=== PATIENT | female | born 1965 | race Caucasian/White ===

== ENCOUNTER 2020-12-14 12:59 | Inpatient (IN) | payer BC ==
[2020-12-14] MEDS ORDERED: Zofran 4 MG/2 ML VIAL IV ONE (13:19)
[2020-12-14] MEDS ORDERED: Sodium Chloride 0.9% 1000 ML 1,000 ML IV STA (13:19)
--- NOTE | 2020-12-14 13:25 | ERPHSYRPT ---
- History of Present Illness Time Seen by Provider: 12/14/20 13:23 Historian: patient Exam Limitations: no limitations Patient Subjective Stated Complaint: right lower abdominal pain Triage Nursing Assessment: Patient ambulated back to ED and transferred self to bed. Patient A+O x3. Patient's skin pink, warm and dry. Patient complains of lower right sided abdominal pain 8/10 dull aching pain with occasional sharp pain upon movement. Patient's abdomen soft and round with BS X 4. Rebound tenderness noted to RLQ. Patient states she did vomit X 1 yesterday. Physician History: Patient is 55-year-old female with significant past medical history of hyperlipidemia and hypertension started having a right lower quadrant abdominal pain since yesterday associated with vomiting. Patient denies any fever chills any urinary symptoms. Patient does not have any surgery in the past. Patient denies same type of symptoms in the past. Timing/Duration: yesterday Activities at Onset: none Quality: cramping Abdominal Pain Onset Location: RLQ Pain Radiation: no radiation Severity of Pain-Max: moderate Severity of Pain-Current: moderate Modifying Factors: Improves With: nothing Associated Symptoms: loss of appetite, nausea, vomiting Previous symptoms: no prior history Body Map: 1 - area of pain Allergies/Adverse Reactions: No Known Drug Allergies Allergy (Unverified 12/14/20 13:08) Hx Influenza Vaccination/Date Given: No Hx Pneumococcal Vaccination/Date Given: No Immunizations Up to Date: Yes Travel Risk - International Travel Have you traveled outside of the country in past 3 weeks: No - Coronavirus Screening Are you exhibiting any of the following symptoms?: No Close contact with a COVID-19 positive Pt in past 14-21 Days: No - Vaccine Status Have you recieved a Covid-19 vaccination: No - Review of Systems Constitutional: No Fever, No Chills Eyes: No Symptoms Ears, Nose, & Throat: No Symptoms Respiratory: No Cough, No Dyspnea Cardiac: No Chest Pain, No Edema, No Syncope Abdominal/Gastrointestinal: Abdominal Pain, Nausea, Vomiting, Appetite Changes, No Diarrhea, No Constipation, No Hematemesis, No Hematochezia, No Melena, No Dysphagia Genitourinary Symptoms: No Dysuria Musculoskeletal: No Back Pain, No Neck Pain Skin: No Rash Neurological: No Dizziness, No Focal Weakness, No Sensory Changes Psychological: No Symptoms Endocrine: No Symptoms All Other Systems: Reviewed and Negative - Past Medical History Neurological History: No Pertinent History Cardiac History: High Cholesterol, Hypertension Respiratory History: No Pertinent History Endocrine Medical History: No Pertinent History Musculoskeletal History: Arthritis, Fractures, Osteoarthritis GI Medical History: No Pertinent History History: No Pertinent History Female Reproductive Disorders: No Pertinent History Other Medical History: L tibial fx in 2007 with hardware removal later. wisam knee replacement 2018 - Past Surgical History Past Surgical History: Yes Neuro Surgical History: No Pertinent History Cardiac: No Pertinent History Respiratory: No Pertinent History Gastrointestinal: No Pertinent History Genitourinary: No Pertinent History Musculoskeletal: Orthopedic Surgery Female Surgical History: No Pertinent History - Social History Smoking Status: Never smoker Exposure to second hand smoke: No Drug Use: none Patient Lives Alone: Yes - Female History Hx Now: No - Nursing Vital Signs Nursing Vital Signs: Initial Vital Signs Temperature 98.3 F 12/14/20 13:11 Pulse Rate 92 H 12/14/20 13:11 Respiratory Rate 18 12/14/20 13:11 Blood Pressure 146/81 12/14/20 13:11 O2 Sat by Pulse Oximetry 96 12/14/20 13:11 Pain Scale Pain Intensity 6 - Physical Exam General Appearance: no apparent distress, alert Eye Exam: PERRL/EOMI, eyes nml inspection Ears, Nose, Throat Exam: normal ENT inspection, pharynx normal, moist mucous membranes Neck Exam: normal inspection, non-tender, supple, full range of motion Respiratory Exam: normal breath sounds, lungs clear, No respiratory distress Cardiovascular Exam: regular rate/rhythm, normal heart sounds Gastrointestinal/Abdomen Exam: soft, tenderness (right lower quadrant), No mass Back Exam: normal inspection, normal range of motion, No CVA tenderness, No vertebral tenderness Extremity Exam: normal inspection, normal range of motion, pelvis stable Neurologic Exam: alert, oriented x 3, cooperative, normal mood/affect, nml cerebellar function, sensation nml, No motor deficits Skin Exam: normal color, warm, dry SpO2: 96 - Course Nursing assessment & vital signs reviewed: Yes - CT Exams Abdomen/Pelvis CT Interpretation: Tele-radiologist Report (perforated appendicitis) Ordered Tests: Active Orders 24 hr Category Date Time Status ABDOMEN AND PELVIS W/0 CONTRAS [CT] Stat Exams 12/14/20 14:04 Taken OBSTR/ACUTE ABDOMEN SERIES Stat Exams 12/14/20 13:19 Taken AMYLASE Stat Lab 12/14/20 13:20 Completed CBC W DIFF Stat Lab 12/14/20 13:20 Completed CMP Stat Lab 12/14/20 13:20 Completed CULTURE,URINE Stat Lab 12/14/20 13:25 Received LIPASE Stat Lab 12/14/20 13:20 Completed UA W/RFX UR CULTURE Stat Lab 12/14/20 13:25 Completed Medication Summary Discontinued Medications Generic Name Dose Route Start Last Admin Trade Name Freq PRN Reason Stop Dose Admin Sodium Chloride 1,000 mls @ 999 mls/hr 12/14/20 13:19 12/14/20 15:36 Sodium Chloride 0.9% 1000 Ml IV 12/14/20 14:19 Infused .Q1H1M STA Infusion Sodium Chloride Confirm 12/14/20 13:33 Sodium Chloride 0.9% 1000 Ml Administered 12/14/20 13:34 Dose 1,000 mls @ ud .ROUTE .STK-MED ONE Cefazolin Sodium/Dextrose 1 gm in 50 mls @ 100 mls/hr 12/14/20 14:05 12/14/20 15:35 Kefzol 1 Gm/50 Ml Premix IV 12/14/20 14:34 Infused STAT STA Infusion Cefazolin Sodium/Dextrose Confirm 12/14/20 14:16 Kefzol 1 Gm/50 Ml Premix Administered 12/14/20 14:17 Dose 1 gm in 50 mls @ ud IV .STK-MED ONE Ondansetron HCl 4 mg 12/14/20 13:19 12/14/20 13:41 Zofran 4 Mg/2 Ml Vial IV 12/14/20 13:20 4 mg STAT ONE Administration Ondansetron HCl Confirm 12/14/20 13:33 Zofran 4 Mg/2 Ml Vial Administered 12/14/20 13:34 Dose 4 mg .ROUTE .STK-MED ONE Lab/Rad Data: Laboratory Result Diagrams 12/14/20 13:20 12/14/20 13:20 Laboratory Results 12/14/20 12/14/20 12/14/20 Range/Units 13:25 13:20 13:20 WBC 19.6 H (4.0-10.5) K/mm3 RBC 3.46 L (4.1-5.4) M/mm3 Hgb 8.5 L (12.0-16.0) gm/dl Hct 28.9 L (35-47) % MCV 83.5 (78-100) fl MCH 24.6 L (26-32) pg MCHC 29.4 L (32-36) g/dl RDW 17.6 H (11.5-14.0) % Plt Count 598 H (150-450) K/mm3 MPV 9.6 (7.5-11.0) fl Gran % 88.0 H (36.0-66.0) % Eos # (Auto) 0.01 (0-0.5) Absolute Lymphs (auto) 0.86 L (1.0-4.6) Absolute Monos (auto) 1.46 H (0.0-1.3) Lymphocytes % 4.4 L (24.0-44.0) % Monocytes % 7.5 (0.0-12.0) % Eosinophils % 0.1 (0.00-5.0) % Basophils % 0.0 (0.0-0.4) % Absolute Granulocytes 17.23 H (1.4-6.9) Basophils # 0 (0-0.4) Sodium 131 L (137-145) mmol/L Potassium 3.9 (3.5-5.1) mmol/L Chloride 97 L (98-107) mmol/L Carbon Dioxide 17 L (22-30) mmol/L Anion Gap 21.5 H (5-15) MEQ/L BUN 19 H (7-17) mg/dL Creatinine 0.93 (0.52-1.04) mg/dL Estimated GFR > 60.0 ML/MIN Glucose 215 H (74-106) mg/dL Calcium 10.0 (8.4-10.2) mg/dL Total Bilirubin 1.00 (0.2-1.3) mg/dL AST 21 (14-36) U/L ALT 25 (0-35) U/L Alkaline Phosphatase 109 (38-126) U/L Serum Total Protein 8.1 (6.3-8.2) g/dL Albumin 4.6 (3.5-5.0) g/dL Amylase 41 (30-110) U/L Lipase 36 (23-300) U/L Urine Color VIJAYA (YELLOW) Urine Appearance CLOUDY (CLEAR) Urine pH 5.0 (5-6) Ur Specific Mobile 1.030 (1.005-1.025) Urine Protein 100 (Negative) Urine Ketones TRACE (NEGATIVE) Urine Blood NEGATIVE (0-5) Eddie/ul Urine Nitrite NEGATIVE (NEGATIVE) Urine Bilirubin NEGATIVE (NEGATIVE) Urine Urobilinogen NEGATIVE (0-1) mg/dL Ur Leukocyte Esterase MODERATE (NEGATIVE) Urine WBC (Auto) 51-100 (0-5) /HPF Urine RBC (Auto) 6-10 (0-2) /HPF U Hyaline Cast (Auto) 26-50 (0-2) /LPF U Epithel Cells (Auto) RARE (FEW) /HPF Urine Bacteria (Auto) RARE (NEGATIVE) /HPF U Non-Squamous Epi Cells RARE (FEW) /HPF Urine Mucus (Auto) MANY (NEGATIVE) /HPF Urine Culture Reflexed YES (NO) Urine Glucose 50 (NEGATIVE) mg/dL - Progress Progress: unchanged Discussed with : Areli Will see patient in: hospital (observation) Counseled pt/family regarding: lab results, diagnosis, need for follow-up, rad results - Departure Departure Disposition: Observation Clinical Impression: Acute appendicitis Qualifiers: Acute appendicitis type: with localized peritonitis Appendicitis gangrene presence: without gangrene Appendicitis perforation presence: with perforation Appendicitis abscess presence: without abscess Qualified Code(s): K35.32 - Acute appendicitis with perforation and localized peritonitis, without abscess Condition: Fair Critical Care Time: Yes Critical Care Time(excluding separately billable procedures): Critical 30-74 mins Referrals: FELICIANO MARTÍNEZ NP [Primary Care Provider] - Instructions: Appendicitis, Adult (DC)
[2020-12-14] MEDS ORDERED: Zofran 4 MG/2 ML VIAL ONE ×2 (13:33→18:13)
[2020-12-14] MEDS ORDERED: Sodium Chloride 0.9% 1000 ML 1,000 ML ONE ×3 (13:33→18:47)
[2020-12-14 13:42] LABS: Absolute Neutrophil Ct (ANC) 17.23 (1.4-6.9); Basophil (Absolute #) 0 (0-0.4); Eosinophil % 0.1 % (0.00-5.0); Eosinophil (Absolute #) 0.01 (0-0.5); Hematocrit 28.9 % (35-47); Hemoglobin 8.5 gm/dl (12.0-16.0); Lymphocyte (Absolute #) 0.86 (1.0-4.6); Lymphocytes % 4.4 % (24.0-44.0); Mean Cell Volume 83.5 fl (78-100); Mean Corpuscular Hemoglobin 24.6 pg (26-32); Mean Corpuscular Hgb Concent. 29.4 g/dl (32-36); Mean Platelet Volume 9.6 fl (7.5-11.0); Monocyte (Absolute #) 1.46 (0.0-1.3); Monocytes % 7.5 % (0.0-12.0); Platelet Count 598 K/mm3 (150-450); Red Blood Count 3.46 M/mm3 (4.1-5.4); Red Cell Distribution Width 17.6 % (11.5-14.0); White Blood Count 19.6 K/mm3 (4.0-10.5)
[2020-12-14 13:49] LABS: ALBUMIN 4.6 g/dL (3.5-5.0); ALKALINE PHOSPHATASE 109 U/L (38-126); AMYLASE 41 U/L (30-110); ANION GAP 21.5 MEQ/L (5-15); BLOOD UREA NITROGEN 19 mg/dL (7-17); CHLORIDE 97 mmol/L (98-107); Carbon Dioxide 17 mmol/L (22-30); Creatinine 1 0.93 mg/dL (0.52-1.04); EST GLOMERULAR FILTRATION RATE > 60.0 ML/MIN; Glucose 215 mg/dL (74-106); LIPASE 36 U/L (23-300); Potassium 3.9 mmol/L (3.5-5.1); SGOT/AST 21 U/L (14-36); SODIUM 131 mmol/L (137-145); Total Protein 8.1 g/dL (6.3-8.2)
[2020-12-14 13:50] LABS: Appearance CLOUDY (CLEAR); Bacteria RARE /HPF (NEGATIVE); Bilirubin NEGATIVE (NEGATIVE); Blood NEGATIVE Ery/ul (0-5); Epithelial Cells RARE /HPF (FEW); Glucose 50 mg/dL (NEGATIVE); Hyaline Casts 26-50 /LPF (0-2); Ketones TRACE (NEGATIVE); Leukocyte Esterase MODERATE (NEGATIVE); Mucus MANY /HPF (NEGATIVE); Nitrite NEGATIVE (NEGATIVE); Non-Squamous Epithelial Cells RARE /HPF (FEW); Protein,Urine Dip 100 (Negative); Urobilinogen NEGATIVE mg/dL (0-1); WBC 51-100 /HPF (0-5)
[2020-12-14 13:55] LABS: SGPT/ALT 25 U/L (0-35)
[2020-12-14] MEDS ORDERED: KEFZOL 1 GM/50 ML PREMIX** 1 GM/50 ML IVPB IV STA (14:05)
[2020-12-14] MEDS ORDERED: KEFZOL 1 GM/50 ML PREMIX** 1 GM/50 ML IVPB IV ONE (14:16)
[2020-12-14] MEDS ORDERED: Levofloxacin 500MG/100ML D5W 500 MG/100 ML BAG IV SCH (16:30)
[2020-12-14] MEDS ORDERED: Lactated Ringers 1,000 ML IV ONE (16:32)
[2020-12-14] MEDS ORDERED: Levofloxacin 500MG/100ML D5W 500 MG/100 ML BAG IV ONE (16:35)
[2020-12-14] MEDS: Lactated Ringers 1,000 ML IV SCH (16:42)
[2020-12-14] MEDS ORDERED: Sensorcaine 0.25% 10 ML ONE (16:55)
[2020-12-14] MEDS ORDERED: Versed 2 MG/2 ML Injection ONE (16:56)
[2020-12-14] MEDS ORDERED: Zemuron 100 MG/10 ML ONE (16:59)
[2020-12-14] MEDS ORDERED: SUBLIMAZE 250 MCG/5 ML ONE (16:59)
[2020-12-14] MEDS ORDERED: DIPRIVAN 200 MG/20 ML IV ONE (16:59)
[2020-12-14] MEDS ORDERED: Quelicin Fliptop 200 MG/10 ML ONE (16:59)
[2020-12-14] MEDS ORDERED: BRIDION 200MG/2ML IV ONE (18:13)
[2020-12-14] MEDS ORDERED: TORAdol 30 mg Injection ONE (18:13)
[2020-12-14] MEDS ORDERED: SUBLIMAZE 100 MCG/2 ML ONE (18:27)
[2020-12-14] MEDS ORDERED: Decadron 4 MG INJ ONE (18:33)
[2020-12-14] MEDS ORDERED: TRANDATE 100 MG/20 ML MDV FOR DRIP IV ONE (18:44)
[2020-12-14] MEDS ORDERED: Xopenex 1.25 MG/0.5 ML UD NEBULE IH ONE ×2 (18:47→18:54)
[2020-12-14] MEDS ORDERED: Sodium Chloride 3 ML UD NEBULES IH ONE (18:47)
[2020-12-14] MEDS ORDERED: Sodium Chloride 3 ML UD NEBULES IH SCH (19:00)
--- NOTE | 2020-12-14 19:43 | XRAY ---
Indication: Right lower quadrant pain. Multiple contiguous axial images obtained through the abdomen and pelvis without contrast. Comparison: None Lung bases demonstrates moderate subsegmental atelectasis/scarring and tiny left costophrenic angle calcified granuloma. Heart is enlarged. Noncontrasted stomach and bowel loops appear nonobstructed. Distended appendix up to 1.4 cm with moderate periappendiceal stranding favoring acute appendicitis. Small free fluid but no walled off fluid collection or free air. Incidental scattered colonic diverticulosis. Gallbladder is moderately distended without gallstones or biliary distention. Uterus demonstrates a 4.9 cm exophytic partially calcified fundal fibroid. 3 cm right ovary cyst. Remaining liver, gallbladder, pancreas, spleen, adrenal glands, kidneys, ureters, bladder, and uterus are unremarkable for noncontrast exam. Mild scattered aortoiliac calcifications without AAA. Osseous structures intact. Impression: 1. CT findings favoring acute appendicitis with small free fluid. No walled off fluid collection/free air. 2. Distended gallbladder without gallstones. Sonogram may yield further information if clinically warranted. 3. Incidental bibasilar subsegmental atelectasis/scarring, cardiomegaly, colonic diverticulosis, uterine fibroid, and 3 cm right ovary cyst. Comment: Preliminary interpretation made by [facility]. No critical discrepancy.
--- NOTE | 2020-12-14 19:45 | XRAY ---
Indication: Right lower quadrant pain. Comparison: None 2 view abdomen demonstrates mild air distended small bowel loops with synchronous fluid leveling favoring ileus. No free air. Solid organs and osseous structures unremarkable. Single PA chest demonstrates moderate bibasilar subsegmental atelectasis/scarring and borderline cardiomegaly. Bony thorax intact. Impression: 1. Mild fluid distended small bowel loops with synchronous fluid leveling favoring ileus. 2. Bibasilar subsegmental atelectasis/scarring and cardiomegaly.
[2020-12-14] MEDS ORDERED: DEXTROSE 5% -NACL 0.9% 1000 ML + KCl 20 MEQ 0 ML IV ONE (19:54)
[2020-12-14] MEDS ORDERED: D5W/0.45NS W/ 20mEq KCl 1000 ML 1,000 ML IV ONE (19:56)
[2020-12-14] MEDS ORDERED: Zofran 4 MG/2 ML VIAL IV PRN (20:50)
[2020-12-14] MEDS ORDERED: TYLENOL 325 MG PO PRN (21:03)
[2020-12-14] MEDS ORDERED: HUMALOG SQ PRN (21:29)
[2020-12-14] MEDS: D5W/0.45NS W/ 20mEq KCl 1000 ML 1,000 ML IV SCH (22:18)
[2020-12-14] MEDS: Zocor 10MG PO SCH (22:19)
[2020-12-14] MEDS: FLAGYL 500 MG IVPB 500 MG/100 ML BAG IV SCH (22:19)
[2020-12-14] MEDS: MORPHINE SULFATE 4 MG INJ IV PRN (22:32)
[2020-12-14] MEDS ORDERED: Zosyn 3.375 GM Vial IV ONE (23:46)
[2020-12-14] MEDS ORDERED: Sodium Chloride 100ML MINI-BAG PLUS 100 ML IV ONE (23:47)
[2020-12-15] MEDS: Zosyn 3.375 GM Vial 3.375 GM in Sodium Chloride 100ML MINI-BAG PLUS 100 ML IV SCH ×4 (00:04→17:04)
[2020-12-15] MEDS ORDERED: MORPHINE SULFATE 4 MG INJ ONE ×2 (03:15→08:08)
[2020-12-15] MEDS: MORPHINE SULFATE 4 MG INJ IV PRN ×4 (03:18→23:15)
[2020-12-15] MEDS ORDERED: Sodium Chloride 100ML MINI-BAG PLUS 100 ML IV ONE (05:27)
[2020-12-15] MEDS ORDERED: FLAGYL 500 MG IVPB 500 MG/100 ML BAG IV ONE (05:27)
[2020-12-15] MEDS ORDERED: Zosyn 3.375 GM Vial IV ONE (05:27)
[2020-12-15] MEDS: FLAGYL 500 MG IVPB 500 MG/100 ML BAG IV SCH ×3 (06:17→22:03)
[2020-12-15 06:24] LABS: Hematocrit 23.7 % (35-47); Mean Cell Volume 86.8 fl (78-100); Mean Corpuscular Hemoglobin 24.5 pg (26-32); Mean Corpuscular Hgb Concent. 28.3 g/dl (32-36); Mean Platelet Volume 9.8 fl (7.5-11.0); Platelet Count 439 K/mm3 (150-450); Red Blood Count 2.73 M/mm3 (4.1-5.4); Red Cell Distribution Width 17.2 % (11.5-14.0); White Blood Count 10.2 K/mm3 (4.0-10.5)
[2020-12-15 06:40] LABS: Hemoglobin 6.7 gm/dl (12.0-16.0)
[2020-12-15 06:53] LABS: ALBUMIN 3.2 g/dL (3.5-5.0); ALKALINE PHOSPHATASE 76 U/L (38-126); BLOOD UREA NITROGEN 17 mg/dL (7-17); CHLORIDE 104 mmol/L (98-107); Calcium 8.7 mg/dL (8.4-10.2); Carbon Dioxide 23 mmol/L (22-30); EST GLOMERULAR FILTRATION RATE > 60.0 ML/MIN; Glucose 157 mg/dL (74-106); Potassium 4.1 mmol/L (3.5-5.1); SGOT/AST 15 U/L (14-36); SGPT/ALT 12 U/L (0-35); SODIUM 136 mmol/L (137-145)
[2020-12-15 08:27] LABS: Slide Review YES
[2020-12-15] MEDS ORDERED: Coreg 6.25 MG ONE (09:49)
[2020-12-15] MEDS ORDERED: Zocor 10MG ONE (09:49)
[2020-12-15] MEDS ORDERED: NORCO 5/325 MG ONE (09:52)
[2020-12-15] MEDS: NORCO 5/325 MG PO PRN ×2 (09:52→14:27)
[2020-12-15] MEDS: Zocor 10MG PO SCH (09:52)
[2020-12-15] MEDS: Lactated Ringers 1,000 ML IV SCH (09:52)
[2020-12-15] MEDS ORDERED: D5W/0.45NS W/ 20mEq KCl 1000 ML 1,000 ML IV ONE (09:56)
[2020-12-15] MEDS: D5W/0.45NS W/ 20mEq KCl 1000 ML 1,000 ML IV SCH (09:58)
[2020-12-15] MEDS ORDERED: PRAVASTATIN SODIUM PO SCH (10:00)
[2020-12-15] MEDS ORDERED: Coreg 6.25 MG PO SCH (10:00)
[2020-12-15 10:27] LABS: ABO TYPING A; Antibody Screen NEGATIVE (NEGATIVE); RH TYPING POSITIVE
[2020-12-15 10:29] LABS: CROSS MATCH (PRBC) COMPATIBLE (COMPATIBLE)
[2020-12-15] MEDS ORDERED: Sodium Chloride 0.9% 1000 ML 1,000 ML ONE (11:18)
[2020-12-15] MEDS ORDERED: BENADRYL 25 MG CAPSULE PO ONE (14:14)
[2020-12-15] MEDS ORDERED: PROVENTIL 2.5 MG/3 ML NEB IH ONE ×2 (14:30→16:10)
--- NOTE | 2020-12-15 15:08 | PCM.HP ---
History of Present Illness - Chief Complaint Chief Complaint: appendicitis History of Present Illness: is a 55 year old female, patient of Angel Burris NP who presented to ER with acute abdominal pain.CTabd/pelvis showed ruptured appendix.She was admitted for appendectomy. - Review of Systems Constitutional: No Symptoms Eyes: No Symptoms Ears, Nose, & Throat: No Symptoms Respiratory: No Symptoms Cardiac: No Symptoms Abdominal/Gastrointestinal: Abdominal Pain, Vomiting (x1) Genitourinary Symptoms: No Symptoms Musculoskeletal: No Symptoms Skin: No Symptoms Neurological: No Symptoms Psychological: No Symptoms Endocrine: No Symptoms Hematologic/Lymphatic: No Symptoms Immunological/Allergic: No Symptoms Medications & Allergies Home Medications: Home Medication List Carvedilol 6.25 mg [Coreg 6.25 MG] 1 tab PO BID 12/14/20 [History Confirmed 12/15/20] Pravastatin Sodium 1 tab PO DAILY 12/14/20 [History Confirmed 12/15/20] Ferrous Sulfate [Feosol] 325 mg PO DAILY #30 tablet 12/18/20 [Rx] Levofloxacin [Levofloxacin 500 MG Tablet] 500 mg PO QAM #6 tablet 12/18/20 [Rx] Allergies/Adverse Reactions: Allergies Allergy/AdvReac Type Severity Reaction Status Date / Time No Known Drug Allergies Allergy Unverified 12/14/20 13:08 - Past Medical History Neurological History: No Pertinent History Cardiac History: High Cholesterol, Hypertension Respiratory History: No Pertinent History Endocrine Medical History: No Pertinent History Musculoskelatal History: Arthritis, Fractures, Osteoarthritis GI Medical History: No Pertinent History History: No Pertinent History Reproductive Disorders: No Pertinent History Comment: R L Leg tibial fx in 2007 with hardware removal later. wisam knee replacement 2018 - Female History Are you now?: No - Past Surgical History Past Surgical History: Yes Neuro Surgical History: No Pertinent History Cardiac History: No Pertinent History Respiratory Surgery: No Pertinent History GI Surgical History: No Pertinent History Genitourinary Surgical Hx: No Pertinent History Musculskeletal Surgical Hx: Orthopedic Surgery Female Surgical History: No Pertinent History - Social History Smoking Status: Never smoker Exposure to second hand smoke: No Alcohol: Occasionally Drug Use: none - Physical Exam Vital Signs: Vital Signs - 24 hr Temp Pulse Resp BP Pulse Ox 12/15/20 11:52 97.5 F 73 18 97/56 97 12/15/20 08:00 98.9 F 81 18 136/63 93 L 12/15/20 07:30 94 L 12/15/20 04:00 98.9 F 83 23 131/63 94 L 12/14/20 23:35 97.9 F 67 20 107/55 95 12/14/20 22:35 98.9 F 87 28 H 110/56 94 L 12/14/20 21:35 98.0 F 87 18 129/69 93 L 12/14/20 21:00 98.6 F 86 28 H 127/60 92 L 12/14/20 20:30 98.7 F 85 32 H 112/58 92 L 12/14/20 20:11 99.0 F 86 32 H 108/59 92 L 12/14/20 20:00 98.8 F 89 32 H 111/67 92 L 12/14/20 19:45 90 L 12/14/20 19:42 99.0 F 86 32 H 108/59 92 L 12/14/20 19:01 85 30 H 99 12/14/20 17:01 98.7 F 97 H 18 151/85 89 L 12/14/20 16:39 98.7 F 97 H 18 151/85 89 L 12/14/20 16:21 96 12/14/20 15:49 89 18 133/60 98 General Appearance: mild distress (post op pain) Neurologic Exam: alert (lethargic from pain meds), oriented x 3, cooperative Eye Exam: eyes nml inspection Ears, Nose, Throat Exam: normal ENT inspection Neck Exam: normal inspection Respiratory Exam: diminished breath sounds (bases) Cardiovascular Exam: regular rate/rhythm Gastrointestinal/Abdomen Exam: distention, guarding (post op dressing is clean and dry, 2 drains present milky pink drainage present) Pelvic Exam: not done Rectal Exam: not done Back Exam: normal inspection (noCVA tenderness) Extremity Exam: normal inspection Skin Exam: normal color (spray lo), warm, dry Results - Labs Lab/Micro Results: Lab Results-Last 24 Hours 12/14/20 12/14/20 12/14/20 Range/Units 13:20 16:54 21:40 WBC (4.0-10.5) K/mm3 RBC (4.1-5.4) M/mm3 Hgb (12.0-16.0) gm/dl Hct (35-47) % MCV (78-100) fl MCH (26-32) pg MCHC (32-36) g/dl RDW (11.5-14.0) % Plt Count (150-450) K/mm3 MPV (7.5-11.0) fl Sodium (137-145) mmol/L Potassium (3.5-5.1) mmol/L Chloride (98-107) mmol/L Carbon Dioxide (22-30) mmol/L Anion Gap (5-15) MEQ/L BUN (7-17) mg/dL Creatinine (0.52-1.04) mg/dL Estimated GFR ML/MIN Glucose (74-106) mg/dL POC Glucometer 130 H (74 to 106) mg/dL Hemoglobin A1c 6.11 H (4.5-6.0) % Calcium (8.4-10.2) mg/dL Total Bilirubin (0.2-1.3) mg/dL AST (14-36) U/L ALT (0-35) U/L Alkaline Phosphatase (38-126) U/L Serum Total Protein (6.3-8.2) g/dL Albumin (3.5-5.0) g/dL SARS-CoV-2 (PCR) NEGATIVE (NEGATIVE) Slides for Path Review ABO Group Rh Factor Antibody Screen (NEGATIVE) Crossmatch (COMPATIBLE) 12/15/20 12/15/20 12/15/20 Range/Units 05:15 05:15 07:44 WBC 10.2 (4.0-10.5) K/mm3 RBC 2.73 L (4.1-5.4) M/mm3 Hgb 6.7 L* D (12.0-16.0) gm/dl Hct 23.7 L (35-47) % MCV 86.8 (78-100) fl MCH 24.5 L (26-32) pg MCHC 28.3 L (32-36) g/dl RDW 17.2 H (11.5-14.0) % Plt Count 439 (150-450) K/mm3 MPV 9.8 (7.5-11.0) fl Sodium 136 L (137-145) mmol/L Potassium 4.1 (3.5-5.1) mmol/L Chloride 104 (98-107) mmol/L Carbon Dioxide 23 (22-30) mmol/L Anion Gap 13.0 (5-15) MEQ/L BUN 17 (7-17) mg/dL Creatinine 0.80 (0.52-1.04) mg/dL Estimated GFR > 60.0 ML/MIN Glucose 157 H (74-106) mg/dL POC Glucometer 144 H (74 to 106) mg/dL Hemoglobin A1c (4.5-6.0) % Calcium 8.7 (8.4-10.2) mg/dL Total Bilirubin 0.50 (0.2-1.3) mg/dL AST 15 (14-36) U/L ALT 12 (0-35) U/L Alkaline Phosphatase 76 (38-126) U/L Serum Total Protein 6.0 L (6.3-8.2) g/dL Albumin 3.2 L (3.5-5.0) g/dL SARS-CoV-2 (PCR) (NEGATIVE) Slides for Path Review YES ABO Group Rh Factor Antibody Screen (NEGATIVE) Crossmatch (COMPATIBLE) 12/15/20 12/15/20 12/15/20 Range/Units 08:10 08:10 11:23 WBC (4.0-10.5) K/mm3 RBC (4.1-5.4) M/mm3 Hgb (12.0-16.0) gm/dl Hct (35-47) % MCV (78-100) fl MCH (26-32) pg MCHC (32-36) g/dl RDW (11.5-14.0) % Plt Count (150-450) K/mm3 MPV (7.5-11.0) fl Sodium (137-145) mmol/L Potassium (3.5-5.1) mmol/L Chloride (98-107) mmol/L Carbon Dioxide (22-30) mmol/L Anion Gap (5-15) MEQ/L BUN (7-17) mg/dL Creatinine (0.52-1.04) mg/dL Estimated GFR ML/MIN Glucose (74-106) mg/dL POC Glucometer 147 H (74 to 106) mg/dL Hemoglobin A1c (4.5-6.0) % Calcium (8.4-10.2) mg/dL Total Bilirubin (0.2-1.3) mg/dL AST (14-36) U/L ALT (0-35) U/L Alkaline Phosphatase (38-126) U/L Serum Total Protein (6.3-8.2) g/dL Albumin (3.5-5.0) g/dL SARS-CoV-2 (PCR) (NEGATIVE) Slides for Path Review ABO Group A Rh Factor POSITIVE Antibody Screen NEGATIVE (NEGATIVE) Crossmatch COMPATIBLE COMPATIBLE (COMPATIBLE) Microbiology 12/14/20 18:07 Urine Culture - Preliminary Catherized NO GROWTH TO DATE 12/14/20 13:25 Urine Culture - Preliminary Clean Catch Midstream NO GROWTH TO DATE Accuchecks Date 12/15/20 Date 12/15/20 Time 07:30 - Radiology Impressions Radiology Exams & Impressions: Radiology Procedures Category Date Time Status ABDOMEN AND PELVIS W/0 CONTRAS [CT] Stat Exams 12/14/20 14:04 Completed OBSTR/ACUTE ABDOMEN SERIES Stat Exams 12/14/20 13:19 Completed - Other Procedures and Tests Respiratory Therapy 12/14/20 19:00 Incentive Spirometry TID 12/14/20 19:01 Respiratory Therapy Assessment DAILY 12/14/20 20:05 Oxygen Oxymask LPM 6 lpm Assessment/Plan (1) Acute appendicitis Current Visit: Yes Status: Resolved Qualifiers: Acute appendicitis type: with localized peritonitis Appendicitis gangrene presence: without gangrene Appendicitis perforation presence: with perforation Appendicitis abscess presence: without abscess Qualified Code(s): K35.32 - Acute appendicitis with perforation and localized peritonitis, without abscess Assessment & Plan: post op Code(s): K35.80 - UNSPECIFIED ACUTE APPENDICITIS (2) Anemia Current Visit: Yes Status: Acute Qualifiers: Anemia type: unspecified type Qualified Code(s): D64.9 - Anemia, unspecified Assessment & Plan: Hgb =6.7 and patient agreed to transfusion 2units PRBC Code(s): D64.9 - ANEMIA, UNSPECIFIED
[2020-12-15 18:11] LABS: Hematocrit 29.1 % (35-47); Hemoglobin 8.5 gm/dl (12.0-16.0)
[2020-12-15] MEDS: ZOCOR 20MG PO SCH (22:04)
[2020-12-15] MEDS: Coreg 6.25 MG PO SCH (22:04)
[2020-12-15] MEDS ORDERED: PROVENTIL 2.5 MG/3 ML NEB IH PRN (22:35)
[2020-12-15 23:01] LABS: Absolute Neutrophil Ct (ANC) 8.28 (1.4-6.9); BASOPHIL % 0.1 % (0.0-0.4); Basophil (Absolute #) 0.01 (0-0.4); Eosinophil % 1.2 % (0.00-5.0); Eosinophil (Absolute #) 0.12 (0-0.5); Hematocrit 27.8 % (35-47); Hemoglobin 8.2 gm/dl (12.0-16.0); Lymphocyte (Absolute #) 0.67 (1.0-4.6); Lymphocytes % 6.6 % (24.0-44.0); Mean Cell Volume 86.9 fl (78-100); Mean Corpuscular Hemoglobin 25.6 pg (26-32); Mean Corpuscular Hgb Concent. 29.5 g/dl (32-36); Monocyte (Absolute #) 1.11 (0.0-1.3); Monocytes % 10.9 % (0.0-12.0); Neutrophil % 81.2 % (36.0-66.0); Platelet Count 299 K/mm3 (150-450); Red Cell Distribution Width 16.6 % (11.5-14.0); White Blood Count 10.2 K/mm3 (4.0-10.5)
[2020-12-15 23:13] LABS: ALBUMIN 3.1 g/dL (3.5-5.0); ALKALINE PHOSPHATASE 91 U/L (38-126); BLOOD UREA NITROGEN 15 mg/dL (7-17); CHLORIDE 103 mmol/L (98-107); Calcium 8.3 mg/dL (8.4-10.2); Carbon Dioxide 19 mmol/L (22-30); Creatinine 1 0.58 mg/dL (0.52-1.04); EST GLOMERULAR FILTRATION RATE > 60.0 ML/MIN; Glucose 136 mg/dL (74-106); Potassium 4.1 mmol/L (3.5-5.1); SGOT/AST 18 U/L (14-36); SGPT/ALT 9 U/L (0-35); SODIUM 130 mmol/L (137-145); Total Protein 6.1 g/dL (6.3-8.2)
[2020-12-16] MEDS: Zosyn 3.375 GM Vial 3.375 GM in Sodium Chloride 100ML MINI-BAG PLUS 100 ML IV SCH ×5 (00:54→23:09)
[2020-12-16] MEDS: MORPHINE SULFATE 4 MG INJ IV PRN ×2 (03:34→11:42)
[2020-12-16] MEDS: D5W/0.45NS W/ 20mEq KCl 1000 ML 1,000 ML IV SCH (03:36)
[2020-12-16 05:25] LABS: Hematocrit 28.7 % (35-47); Hemoglobin 8.4 gm/dl (12.0-16.0); Mean Cell Volume 86.2 fl (78-100); Mean Corpuscular Hemoglobin 25.2 pg (26-32); Mean Corpuscular Hgb Concent. 29.3 g/dl (32-36); Mean Platelet Volume 9.5 fl (7.5-11.0); Platelet Count 456 K/mm3 (150-450); Red Blood Count 3.33 M/mm3 (4.1-5.4); Red Cell Distribution Width 16.6 % (11.5-14.0); White Blood Count 10.2 K/mm3 (4.0-10.5)
[2020-12-16 05:40] LABS: ALBUMIN 3.3 g/dL (3.5-5.0); ALKALINE PHOSPHATASE 95 U/L (38-126); ANION GAP 14.2 MEQ/L (5-15); BLOOD UREA NITROGEN 11 mg/dL (7-17); CHLORIDE 102 mmol/L (98-107); Calcium 8.7 mg/dL (8.4-10.2); Carbon Dioxide 20 mmol/L (22-30); Creatinine 1 0.62 mg/dL (0.52-1.04); EST GLOMERULAR FILTRATION RATE > 60.0 ML/MIN; Glucose 160 mg/dL (74-106); Potassium 4.1 mmol/L (3.5-5.1); SGOT/AST 16 U/L (14-36); SGPT/ALT 12 U/L (0-35); SODIUM 133 mmol/L (137-145); Total Protein 6.4 g/dL (6.3-8.2)
[2020-12-16] MEDS: FLAGYL 500 MG IVPB 500 MG/100 ML BAG IV SCH ×3 (05:58→21:46)
--- NOTE | 2020-12-16 08:58 | CONS ---
CONSULT DATE: 12/14/2020 HISTORY: The patient is a 55 year-old with two-day history of abdominal pain localized to the right lower quadrant. Failed to improve and came in. She had a white count of 19,000 or greater. She had CT scan show inflammatory changes consistent with acute appendicitis, possible perforation, and possible abscess. PAST MEDICAL HISTORY: Hypertension, hyperlipidemia. PAST SURGICAL HISTORY: The patient denied any prior abdominal surgery. HOME MEDICATIONS: Carvedilol, pravastatin. ALLERGIES: NKDA. FAMILY HISTORY: Heart disease, diabetes. SOCIAL HISTORY: Denied smoking. Does drink alcohol on occasion. REVIEW OF SYSTEMS: Fourteen systems reviewed. No chest pain or palpitations. Other systems negative or noncontributory as above and per preadmission questionnaire. PHYSICAL EXAMINATION: GENERAL: She has been uncomfortable otherwise no acute distress. HEENT: Sclera nonicteric. NECK: No JVD. CHEST: Equal excursion. CVS: Regular rhythm and pulse. ABDOMEN: Tenderness mostly localized to the right lower quadrant. EXTREMITIES: No cyanosis. NEURO: Alert, moving extremities symmetrically. PSYCH: Appropriate mood and affect. IMPRESSION: Acute abdominal pain localized to right lower quadrant. Initial CT findings suspicious for acute appendicitis. I feel the patient will benefit from diagnostic laparoscopy, laparoscopic appendectomy possible open. Risks and benefits explained in detail including but not limited to bleeding or infection, risk of trocar injury or hernia, risk of bowel, bladder or blood vessel injury, subsequent intra-abdominal abscess or fistula formation possibly requiring percutaneous or open drainage even at a later date, general risk of anesthesia, deep venous thrombosis, pulmonary embolism, pneumonia, perioperative risk of risk of ileus or obstruction, risk of ongoing infection, possibility of finding a normal appendix likely will remove incidentally and look for other etiology that might need taken care of surgically. General risk of anesthesia, deep vein thrombosis, pulmonary embolism, pneumonia but not limited to. She agreed to the planned procedure, will proceed with diagnostic laparoscopy, laparoscopic appendectomy, possible open when OR time available.
--- NOTE | 2020-12-16 08:59 | XRAY ---
Indication: Hypoxia. Elevated d-dimer. Status post appendectomy. Multiple contiguous axial images obtained through the chest using 80 cc Isovue 370 contrast and PE protocol. Comparison: None Good opacification of the pulmonary arteries to include the lobar and segmental branches. No pulmonary embolus. Heart is enlarged. Aorta is normal in course and caliber. A few tiny right hilar calcified nodes. No pathologic mediastinal/hilar lymphadenopathy. Lungs demonstrates moderate multifocal consolidations versus subsegmental atelectasis right greater than left with tiny bilateral effusions. Incidental tiny right lower lobe calcified granuloma. Bony thorax intact. Right T3 neural foramina demonstrates a 2.4 x 2.6 cm paravertebral mass possibly schwannoma or neurofibroma. Limited upper abdomen demonstrates incompletely visualized distended gallbladder and incompletely visualized left lateral abdominal wall subcutaneous emphysema. Impression: 1. Negative pulmonary embolus. 2. Multifocal bilateral consolidations versus subsegmental atelectasis with tiny bilateral effusions. 3. Incompletely visualized distended gallbladder. Sonogram may yield further information if clinically warranted. 4. Right T3 neural foramina mass. Schwannoma versus neurofibroma. MRI may yield further information if clinically warranted. 5. Incompletely visualized left abdominal wall subcutaneous emphysema. Correlate with surgical history. 6. Incidental old granulomatous disease. Comment: Preliminary interpretation made by [facility]. No critical discrepancy.
--- NOTE | 2020-12-16 09:01 | XRAY ---
Indication: Hypoxia. Elevated d-dimer. Status post appendectomy. Comparison: December 14, 2020. Portable chest demonstrates worsening moderate bibasilar atelectasis versus infiltrates with new tiny left effusion. Heart remains borderline enlarged. Remaining chest unremarkable. Comment: Preliminary interpretation made by [facility]. No critical discrepancy.
--- NOTE | 2020-12-16 09:03 | XRAY ---
Indication: Hypoxia. Elevated d-dimer. Status post appendectomy. Comparison: December 14, 2020. KUB demonstrates new right lower quadrant drainage tubing and left flank subcutaneous emphysema presumed related to recent surgery. New air distended bowel loops favoring postoperative ileus. Solid organs unremarkable. Osseous structures intact again with old right lower rib fractures. Comment: Preliminary interpretation made by [facility]. No critical discrepancy.
--- NOTE | 2020-12-16 09:24 | OP ---
SURGERY DATE/TIME: 12/14/2020 1725 PREOPERATIVE DIAGNOSIS: Acute appendicitis by CT scan, question perforation. POSTOPERATIVE DIAGNOSIS: Perforated acute appendicitis with diffuse peritonitis and abscesses. PROCEDURE: Laparoscopic appendectomy with drainage of abscesses, extensive lavage of peritonitis. SURGEON: Dr. Vahid Quach. ANESTHESIA: General. ESTIMATED BLOOD LOSS: Minimal. INDICATIONS: As noted above. Risks and benefits explained in detail but not limited to, consent obtained. DESCRIPTION OF PROCEDURE AND FINDINGS: The patient was taken to the operating room. General anesthesia was induced. Abdomen prepped and draped in the usual sterile fashion. After official time out and no disagreement with planned procedure, a transverse incision made in supraumbilical area. Fascia grasped and pulled upwards. Veress needle inserted and tested with saline. Pneumoperitoneum accomplished insufflating from opening pressure of 0 to 15. A 5 mm bladeless port and camera were inserted without difficulty followed by another 5 mm port in the lower mid abdomen and a 12 mm right upper quadrant port. The patient had small bowel loops adhesed to the anterior abdominal wall in the right lower quadrant, had diffuse peritonitis and had some interloop abscesses. These were slowly and carefully mobilized allowing visualization of appendix. It was definitely perforated and had a gangrenous base. The abscesses there were drained and irrigated as clear as possible with some of the fluid sent for culture. Using LigaSure device carefully dissected the mesoappendix allowing the viable portion of the appendiceal base elevated upwards and EndoGIA stapler fired across the base of the cecum avoiding the ileocecal valve area. The residual mesoappendix taken down with the stapler. Appendix placed in a bag, pulled free and passed off. The port was replaced. Using the puncture closure device with #1 Vicryl used to close the fascial defect at the 12 mm site. The port was replaced. Copious amount of irrigation was irrigated. Both down in the pelvis in the right lower quadrant diffuse peritonitis and the abscesses drained. The patient did have a large what appeared to be simple left ovarian cyst. Extensive lavage of the pelvis and interloop abscesses and the right lower quadrant abscesses accomplished as clear as possible. JANEL drain lower mid abdomen 5 mm port placed in the right lower quadrant without direct communication with the staple line and another drain from a separate stab wound in right lower quadrant was directed down towards the pelvis. Copious amount of irrigation irrigating until clear. At this point again #1 Vicryl used to close the fascial defect 12 mm site. Pneumoperitoneum decompressed. The wound is irrigated out. Drains secured with PDS suture. The skin incision at the camera port was closed with 4-0 Vicryl. Otherwise the other incisions 12 mm site where the appendix had been as there was so much foul infection even on the outside of the bag even though we kept the appendix in the bag, it was felt this warranted a packing strip to gradually advance out over the next few days. Therefore, the skin at that port site was loosely stapled with Iodoform packing placed in between to be gradually advanced out over the next few days. The patient tolerated the procedure well. There were no immediate complications. I will see if there is any family to discuss the findings with.
[2020-12-16] MEDS: Coreg 6.25 MG PO SCH ×2 (09:52→21:47)
[2020-12-16] MEDS ORDERED: K-LYTE 25 MEQ PO ONE (10:00)
[2020-12-16] MEDS ORDERED: Lasix 20 MG/2 ML IV ONE (11:30)
--- NOTE | 2020-12-16 13:10 | PCM.NOTE ---
Date and Time: 12/16/20 1303 Subjective Assessment: Patient POD#2 appendectomy ruptured appedix. Hgb dropped to 6.7 yesterday and she received 2units PRBC . During the night she had worsening of right sided pain and desaturated requiring O2 12L oximask. D-Dimer elevated CT chest was neg for PE showing bibasilar effusion vs infiltrate. BNP mildly elevated. Patient has improved with diuresis after single dose Lasix 20mg IV. She has tolerated advanced diet . ECHO was done this morning. OBJECTIVE DATA Vital Signs: Vital Signs - 24 hr Temp Pulse Resp BP Pulse Ox 12/16/20 08:00 97.7 F 70 16 112/59 95 12/16/20 07:16 76 26 H 95 12/16/20 04:08 97.3 F 78 24 140/62 92 L 12/15/20 22:57 93 L 12/15/20 22:52 87 32 H 93 L 12/15/20 20:14 26 H 92 L 12/15/20 20:00 98.7 F 82 22 160/83 95 12/15/20 16:00 97.9 F 76 20 122/60 97 12/15/20 15:00 80 32 H 90 L Pain Assessment - Last Documented Pain Intensity 5 Pain Scale Used 0-10 Pain Scale Intake and Output: Intake & Output 12/14/20 12/15/20 12/16/20 12/17/20 11:59 11:59 11:59 11:59 Intake Total 1641 3555 Output Total 880 560 Balance 761 2995 Weight 88.451 kg Lab Results: Lab Results-Last 24 Hours 12/15/20 12/15/20 12/15/20 Range/Units 16:49 18:08 20:43 WBC (4.0-10.5) K/mm3 RBC (4.1-5.4) M/mm3 Hgb 8.5 L D (12.0-16.0) gm/dl Hct 29.1 L (35-47) % MCV (78-100) fl MCH (26-32) pg MCHC (32-36) g/dl RDW (11.5-14.0) % Plt Count (150-450) K/mm3 MPV (7.5-11.0) fl Gran % (36.0-66.0) % Eos # (Auto) (0-0.5) Absolute Lymphs (auto) (1.0-4.6) Absolute Monos (auto) (0.0-1.3) Lymphocytes % (24.0-44.0) % Monocytes % (0.0-12.0) % Eosinophils % (0.00-5.0) % Basophils % (0.0-0.4) % Absolute Granulocytes (1.4-6.9) Basophils # (0-0.4) D-Dimer (215-500) ng/mL Sodium (137-145) mmol/L Potassium (3.5-5.1) mmol/L Chloride (98-107) mmol/L Carbon Dioxide (22-30) mmol/L Anion Gap (5-15) MEQ/L BUN (7-17) mg/dL Creatinine (0.52-1.04) mg/dL Estimated GFR ML/MIN Glucose (74-106) mg/dL POC Glucometer 115 H 133 H (74 to 106) mg/dL Lactic Acid (0.4-2.0) Calcium (8.4-10.2) mg/dL Total Bilirubin (0.2-1.3) mg/dL AST (14-36) U/L ALT (0-35) U/L Alkaline Phosphatase (38-126) U/L NT-Pro-B Natriuret Pep (0-900) pg/mL Serum Total Protein (6.3-8.2) g/dL Albumin (3.5-5.0) g/dL SARS-CoV-2 (PCR) (NEGATIVE) 12/15/20 12/15/20 12/15/20 Range/Units 22:54 22:55 22:56 WBC 10.2 (4.0-10.5) K/mm3 RBC 3.20 L (4.1-5.4) M/mm3 Hgb 8.2 L (12.0-16.0) gm/dl Hct 27.8 L (35-47) % MCV 86.9 (78-100) fl MCH 25.6 L (26-32) pg MCHC 29.5 L (32-36) g/dl RDW 16.6 H (11.5-14.0) % Plt Count 299 (150-450) K/mm3 MPV 10.0 (7.5-11.0) fl Gran % 81.2 H (36.0-66.0) % Eos # (Auto) 0.12 (0-0.5) Absolute Lymphs (auto) 0.67 L (1.0-4.6) Absolute Monos (auto) 1.11 (0.0-1.3) Lymphocytes % 6.6 L (24.0-44.0) % Monocytes % 10.9 (0.0-12.0) % Eosinophils % 1.2 (0.00-5.0) % Basophils % 0.1 (0.0-0.4) % Absolute Granulocytes 8.28 H (1.4-6.9) Basophils # 0.01 (0-0.4) D-Dimer 4433 H* (215-500) ng/mL Sodium (137-145) mmol/L Potassium (3.5-5.1) mmol/L Chloride (98-107) mmol/L Carbon Dioxide (22-30) mmol/L Anion Gap (5-15) MEQ/L BUN (7-17) mg/dL Creatinine (0.52-1.04) mg/dL Estimated GFR ML/MIN Glucose (74-106) mg/dL POC Glucometer (74 to 106) mg/dL Lactic Acid (0.4-2.0) Calcium (8.4-10.2) mg/dL Total Bilirubin (0.2-1.3) mg/dL AST (14-36) U/L ALT (0-35) U/L Alkaline Phosphatase (38-126) U/L NT-Pro-B Natriuret Pep 925 H (0-900) pg/mL Serum Total Protein (6.3-8.2) g/dL Albumin (3.5-5.0) g/dL SARS-CoV-2 (PCR) (NEGATIVE) 12/15/20 12/15/20 12/16/20 Range/Units 22:56 23:15 01:39 WBC (4.0-10.5) K/mm3 RBC (4.1-5.4) M/mm3 Hgb (12.0-16.0) gm/dl Hct (35-47) % MCV (78-100) fl MCH (26-32) pg MCHC (32-36) g/dl RDW (11.5-14.0) % Plt Count (150-450) K/mm3 MPV (7.5-11.0) fl Gran % (36.0-66.0) % Eos # (Auto) (0-0.5) Absolute Lymphs (auto) (1.0-4.6) Absolute Monos (auto) (0.0-1.3) Lymphocytes % (24.0-44.0) % Monocytes % (0.0-12.0) % Eosinophils % (0.00-5.0) % Basophils % (0.0-0.4) % Absolute Granulocytes (1.4-6.9) Basophils # (0-0.4) D-Dimer (215-500) ng/mL Sodium 130 L (137-145) mmol/L Potassium 4.1 (3.5-5.1) mmol/L Chloride 103 (98-107) mmol/L Carbon Dioxide 19 L (22-30) mmol/L Anion Gap 13.0 (5-15) MEQ/L BUN 15 (7-17) mg/dL Creatinine 0.58 (0.52-1.04) mg/dL Estimated GFR > 60.0 ML/MIN Glucose 136 H (74-106) mg/dL POC Glucometer (74 to 106) mg/dL Lactic Acid 0.7 (0.4-2.0) Calcium 8.3 L (8.4-10.2) mg/dL Total Bilirubin 0.90 (0.2-1.3) mg/dL AST 18 (14-36) U/L ALT 9 (0-35) U/L Alkaline Phosphatase 91 (38-126) U/L NT-Pro-B Natriuret Pep (0-900) pg/mL Serum Total Protein 6.1 L (6.3-8.2) g/dL Albumin 3.1 L (3.5-5.0) g/dL SARS-CoV-2 (PCR) NEGATIVE (NEGATIVE) 12/16/20 12/16/20 12/16/20 Range/Units 05:00 05:00 07:16 WBC 10.2 (4.0-10.5) K/mm3 RBC 3.33 L (4.1-5.4) M/mm3 Hgb 8.4 L (12.0-16.0) gm/dl Hct 28.7 L (35-47) % MCV 86.2 (78-100) fl MCH 25.2 L (26-32) pg MCHC 29.3 L (32-36) g/dl RDW 16.6 H (11.5-14.0) % Plt Count 456 H D (150-450) K/mm3 MPV 9.5 (7.5-11.0) fl Gran % (36.0-66.0) % Eos # (Auto) (0-0.5) Absolute Lymphs (auto) (1.0-4.6) Absolute Monos (auto) (0.0-1.3) Lymphocytes % (24.0-44.0) % Monocytes % (0.0-12.0) % Eosinophils % (0.00-5.0) % Basophils % (0.0-0.4) % Absolute Granulocytes (1.4-6.9) Basophils # (0-0.4) D-Dimer (215-500) ng/mL Sodium 133 L (137-145) mmol/L Potassium 4.1 (3.5-5.1) mmol/L Chloride 102 (98-107) mmol/L Carbon Dioxide 20 L (22-30) mmol/L Anion Gap 14.2 (5-15) MEQ/L BUN 11 (7-17) mg/dL Creatinine 0.62 (0.52-1.04) mg/dL Estimated GFR > 60.0 ML/MIN Glucose 160 H (74-106) mg/dL POC Glucometer 203 H (74 to 106) mg/dL Lactic Acid (0.4-2.0) Calcium 8.7 (8.4-10.2) mg/dL Total Bilirubin 0.80 (0.2-1.3) mg/dL AST 16 (14-36) U/L ALT 12 (0-35) U/L Alkaline Phosphatase 95 (38-126) U/L NT-Pro-B Natriuret Pep (0-900) pg/mL Serum Total Protein 6.4 (6.3-8.2) g/dL Albumin 3.3 L (3.5-5.0) g/dL SARS-CoV-2 (PCR) (NEGATIVE) 12/16/20 Range/Units 11:39 WBC (4.0-10.5) K/mm3 RBC (4.1-5.4) M/mm3 Hgb (12.0-16.0) gm/dl Hct (35-47) % MCV (78-100) fl MCH (26-32) pg MCHC (32-36) g/dl RDW (11.5-14.0) % Plt Count (150-450) K/mm3 MPV (7.5-11.0) fl Gran % (36.0-66.0) % Eos # (Auto) (0-0.5) Absolute Lymphs (auto) (1.0-4.6) Absolute Monos (auto) (0.0-1.3) Lymphocytes % (24.0-44.0) % Monocytes % (0.0-12.0) % Eosinophils % (0.00-5.0) % Basophils % (0.0-0.4) % Absolute Granulocytes (1.4-6.9) Basophils # (0-0.4) D-Dimer (215-500) ng/mL Sodium (137-145) mmol/L Potassium (3.5-5.1) mmol/L Chloride (98-107) mmol/L Carbon Dioxide (22-30) mmol/L Anion Gap (5-15) MEQ/L BUN (7-17) mg/dL Creatinine (0.52-1.04) mg/dL Estimated GFR ML/MIN Glucose (74-106) mg/dL POC Glucometer 141 H (74 to 106) mg/dL Lactic Acid (0.4-2.0) Calcium (8.4-10.2) mg/dL Total Bilirubin (0.2-1.3) mg/dL AST (14-36) U/L ALT (0-35) U/L Alkaline Phosphatase (38-126) U/L NT-Pro-B Natriuret Pep (0-900) pg/mL Serum Total Protein (6.3-8.2) g/dL Albumin (3.5-5.0) g/dL SARS-CoV-2 (PCR) (NEGATIVE) Radiology Exams: Radiology Procedures Category Date Time Status ABDOMEN AND PELVIS W/0 CONTRAS [CT] Stat Exams 12/14/20 14:04 Completed CHEST 1 VIEW (PORTABLE) Stat Exams 12/15/20 22:38 Completed CHEST WITH CONTRAST [CT] Stat Exams 12/15/20 23:40 Completed ECHO W/2D AND DOPPLER [US] Routine Exams 12/16/20 12:18 Taken KUB Stat Exams 12/15/20 06:22 Completed OBSTR/ACUTE ABDOMEN SERIES Stat Exams 12/14/20 13:19 Completed Multi-Disciplinary Progress Notes: Multi-Disciplinary Progress Notes 12/16/20 11:27 Respiratory Note by Paulina Carlos O2 sat 96% on 12 lpm oxymask. Decreased to 10lpm nc. Encouraged use of IS. Initialized on 12/16/20 11:27 - END OF NOTE Assessment/Plan (1) Acute appendicitis Current Visit: Yes Status: Acute Qualifiers: Acute appendicitis type: with localized peritonitis Appendicitis gangrene presence: without gangrene Appendicitis perforation presence: with perforation Appendicitis abscess presence: without abscess Qualified Code(s): K35.32 - Acute appendicitis with perforation and localized peritonitis, without abscess Code(s): K35.80 - UNSPECIFIED ACUTE APPENDICITIS (2) Anemia Current Visit: Yes Status: Acute Qualifiers: Anemia type: unspecified type Qualified Code(s): D64.9 - Anemia, unspecified Code(s): D64.9 - ANEMIA, UNSPECIFIED
[2020-12-16] MEDS: NORCO 5/325 MG PO PRN ×2 (15:36→20:34)
[2020-12-16] MEDS: ZOCOR 20MG PO SCH (21:47)
[2020-12-17] MEDS: NORCO 5/325 MG PO PRN ×3 (02:50→18:32)
[2020-12-17 04:55] LABS: Hematocrit 26.9 % (35-47); Hemoglobin 7.9 gm/dl (12.0-16.0); Mean Cell Volume 86.5 fl (78-100); Mean Corpuscular Hemoglobin 25.4 pg (26-32); Mean Corpuscular Hgb Concent. 29.4 g/dl (32-36); Mean Platelet Volume 9.2 fl (7.5-11.0); Platelet Count 424 K/mm3 (150-450); Red Blood Count 3.11 M/mm3 (4.1-5.4); Red Cell Distribution Width 16.9 % (11.5-14.0); White Blood Count 9.4 K/mm3 (4.0-10.5)
[2020-12-17 05:22] LABS: ALBUMIN 2.8 g/dL (3.5-5.0); ALKALINE PHOSPHATASE 79 U/L (38-126); ANION GAP 10.4 MEQ/L (5-15); BLOOD UREA NITROGEN 12 mg/dL (7-17); CHLORIDE 101 mmol/L (98-107); Calcium 8.8 mg/dL (8.4-10.2); Carbon Dioxide 27 mmol/L (22-30); Creatinine 1 0.58 mg/dL (0.52-1.04); EST GLOMERULAR FILTRATION RATE > 60.0 ML/MIN; Glucose 127 mg/dL (74-106); Potassium 3.8 mmol/L (3.5-5.1); SGOT/AST 18 U/L (14-36); SGPT/ALT 11 U/L (0-35); SODIUM 135 mmol/L (137-145); Total Protein 5.7 g/dL (6.3-8.2)
[2020-12-17] MEDS: Zosyn 3.375 GM Vial 3.375 GM in Sodium Chloride 100ML MINI-BAG PLUS 100 ML IV SCH ×3 (05:28→18:23)
[2020-12-17] MEDS: FLAGYL 500 MG IVPB 500 MG/100 ML BAG IV SCH ×3 (05:29→21:36)
[2020-12-17] MEDS: Coreg 6.25 MG PO SCH ×2 (08:17→21:36)
--- NOTE | 2020-12-17 08:47 | CONS ---
CONSULT DATE: 12/16/2020 REASON FOR CONSULT: Postoperative hypoxemia. HISTORY: Clara Bonilla is a 55-year-old woman who has been hospitalized with complaints of abdominal pain. The patient was noted to have acute appendicitis and underwent surgical correction of the same with Dr. Quach. Postoperatively she was noted to have hypoxemia. CT chest was obtained which was negative for pulmonary embolism, did show bilateral multiple infiltrates suggestive of atelectasis with small effusions. The patient since has done well. She is currently on supplemental oxygen via face mask. She does report feeling better and is able to carry out a normal conversation. She denies any previous pulmonary problems. PAST MEDICAL HISTORY: Positive for hypertension and dyslipidemia. PAST SURGICAL HISTORY: Bilateral knee replacement in 2018. PERSONAL AND SOCIAL HISTORY: She works as a guard. MEDICATIONS: Home and current medications are reviewed. ALLERGIES: NKDA. PHYSICAL EXAMINATION: This is a middle aged woman who appears comfortable, able to carry out a conversation, afebrile. VITAL SIGNS: Heart rate 73, blood pressure 130/60. Saturating 94%. HEENT: Normocephalic. Oral exam limited. NECK: Supple. CVS: First and second heart sounds are normal, regular, rhythmic. RESPIRATORY: Shows diminished breath sounds, fairly clear. ABDOMEN: Status post-surgery, two JANEL drains are in place. EXTREMITIES: No edema is noted. LABORATORY DATA AND TESTS: Sodium 133, potassium 4.1, chloride 102, bicarb 20, glucose 160, BUN 11, creatinine 0.6. White count 10.2, hemoglobin 8.4, hematocrit 29, PLT 456,000. Cultures have remained negative. COVID test was negative. CT chest noted. ASSESSMENT: 1) This is a 55-year-old woman without any significant pulmonary problems admitted after undergoing emergency appendectomy. She is noted to have hypoxemia, appears to be possibility of aspiration pneumonia. The patient reportedly was vomiting prior to admission. 2) Bilateral small pleural effusions likely from intraoperative fluid resuscitation. 3) Emergency appendectomy. 4) Comorbidities listed above. RECOMMENDATIONS: 1) The patient already has shown clinical improvement. 2) Will obtain follow up chest x-ray in the morning. 3) Currently on antibiotics for abdominal coverage which will also broadly cover chest as well. The patient has remained afebrile since admission. 4) Continue incentive spirometry or pulmonary toilet, ambulation, wean supplemental oxygen keeping saturations more than 92%. Will be available as needed. 5) Deep vein thrombosis prophylaxis. Thank you for allowing me to participate in the care of your patient.
--- NOTE | 2020-12-17 09:51 | XRAY ---
Indication: Hypoxia. Possible aspiration pneumonia. Comparison: December 15, 2020. PA/lateral chest demonstrates grossly stable bibasilar atelectasis/infiltrates left greater than right with tiny left effusion. Heart not enlarged. No new cardiopulmonary abnormalities.
[2020-12-17] MEDS ORDERED: Lasix 20 MG/2 ML IV ONE (10:03)
--- NOTE | 2020-12-17 13:56 | PCM.NOTE ---
Date and Time: 12/17/20 3898 Subjective Assessment: Patient is asking if she can shower . Is feeling stronger today. Pain right mid abd improving. Appetite is good. Satill req O2 but improved after diuresis 1 dose Lasix after 2units PRBC post op. Hgb was 6.7. OBJECTIVE DATA Vital Signs: Vital Signs - 24 hr Temp Pulse Resp BP Pulse Ox 12/17/20 12:00 98.5 F 68 21 137/78 96 12/17/20 07:39 97.9 F 72 21 142/64 96 12/17/20 07:25 76 18 96 12/17/20 04:00 97.5 F 72 18 143/66 91 L 12/16/20 23:22 97.8 F 75 18 122/59 93 L 12/16/20 20:00 98.1 F 84 18 128/82 96 12/16/20 18:35 84 16 96 12/16/20 16:00 99.1 F 75 29 H 144/69 98 Pain Assessment - Last Documented Pain Intensity 6 Pain Scale Used 0-10 Pain Scale Intake and Output: Intake & Output 12/15/20 12/16/20 12/17/20 12/18/20 11:59 11:59 11:59 11:59 Intake Total 1641 3555 3293 360 Output Total 440 228 9218 Balance 761 2995 948 360 Weight 88.451 kg Lab Results: Lab Results-Last 24 Hours 12/16/20 12/16/20 12/17/20 Range/Units 16:40 21:07 04:23 WBC 9.4 (4.0-10.5) K/mm3 RBC 3.11 L (4.1-5.4) M/mm3 Hgb 7.9 L (12.0-16.0) gm/dl Hct 26.9 L (35-47) % MCV 86.5 (78-100) fl MCH 25.4 L (26-32) pg MCHC 29.4 L (32-36) g/dl RDW 16.9 H (11.5-14.0) % Plt Count 424 (150-450) K/mm3 MPV 9.2 (7.5-11.0) fl Sodium (137-145) mmol/L Potassium (3.5-5.1) mmol/L Chloride (98-107) mmol/L Carbon Dioxide (22-30) mmol/L Anion Gap (5-15) MEQ/L BUN (7-17) mg/dL Creatinine (0.52-1.04) mg/dL Estimated GFR ML/MIN Glucose (74-106) mg/dL POC Glucometer 120 H 124 H (74 to 106) mg/dL Calcium (8.4-10.2) mg/dL Total Bilirubin (0.2-1.3) mg/dL AST (14-36) U/L ALT (0-35) U/L Alkaline Phosphatase (38-126) U/L Serum Total Protein (6.3-8.2) g/dL Albumin (3.5-5.0) g/dL 12/17/20 12/17/20 12/17/20 Range/Units 04:23 06:52 11:13 WBC (4.0-10.5) K/mm3 RBC (4.1-5.4) M/mm3 Hgb (12.0-16.0) gm/dl Hct (35-47) % MCV (78-100) fl MCH (26-32) pg MCHC (32-36) g/dl RDW (11.5-14.0) % Plt Count (150-450) K/mm3 MPV (7.5-11.0) fl Sodium 135 L (137-145) mmol/L Potassium 3.8 (3.5-5.1) mmol/L Chloride 101 (98-107) mmol/L Carbon Dioxide 27 (22-30) mmol/L Anion Gap 10.4 (5-15) MEQ/L BUN 12 (7-17) mg/dL Creatinine 0.58 (0.52-1.04) mg/dL Estimated GFR > 60.0 ML/MIN Glucose 127 H (74-106) mg/dL POC Glucometer 141 H 113 H (74 to 106) mg/dL Calcium 8.8 (8.4-10.2) mg/dL Total Bilirubin 0.40 (0.2-1.3) mg/dL AST 18 (14-36) U/L ALT 11 (0-35) U/L Alkaline Phosphatase 79 (38-126) U/L Serum Total Protein 5.7 L (6.3-8.2) g/dL Albumin 2.8 L (3.5-5.0) g/dL Radiology Exams: Radiology Procedures Category Date Time Status CHEST 1 VIEW (PORTABLE) Stat Exams 12/15/20 22:38 Completed CHEST 2 VIEWS (PA AND LAT) Routine Exams 12/17/20 09:30 Completed CHEST WITH CONTRAST [CT] Stat Exams 12/15/20 23:40 Completed ECHO W/2D AND DOPPLER [US] Routine Exams 12/16/20 12:18 Taken Multi-Disciplinary Progress Notes: Multi-Disciplinary Progress Notes 12/17/20 10:25 Case Management Note by Paola Oswald PATIENT CONTINUES TO DENY ANY NEEDS AT TIME OF DC. SHE PLANS TO RETURN HOME OT HER PRIOR LEVEL OF FUNCTIONING AT TIME OF DC Initialized on 12/17/20 10:25 - END OF NOTE Assessment/Plan (1) Acute appendicitis Current Visit: Yes Status: Resolved Qualifiers: Acute appendicitis type: with localized peritonitis Appendicitis gangrene presence: without gangrene Appendicitis perforation presence: with perforation Appendicitis abscess presence: without abscess Qualified Code(s): K35.32 - Acute appendicitis with perforation and localized peritonitis, without abscess Assessment & Plan: improving daily Code(s): K35.80 - UNSPECIFIED ACUTE APPENDICITIS (2) Anemia Current Visit: Yes Status: Acute Qualifiers: Anemia type: unspecified type Qualified Code(s): D64.9 - Anemia, unspecified Assessment & Plan: hemetest stools x 3 Code(s): D64.9 - ANEMIA, UNSPECIFIED (3) Hypoxia Current Visit: Yes Status: Acute Assessment & Plan: improving slowly - Pulmonology consult appreciated Code(s): R09.02 - HYPOXEMIA
[2020-12-17] MEDS: Lactated Ringers 1,000 ML IV SCH (19:18)
[2020-12-17] MEDS: D5W/0.45NS W/ 20mEq KCl 1000 ML 1,000 ML IV SCH (19:18)
[2020-12-17] MEDS: ZOCOR 20MG PO SCH (21:36)
[2020-12-18] MEDS: Zosyn 3.375 GM Vial 3.375 GM in Sodium Chloride 100ML MINI-BAG PLUS 100 ML IV SCH ×2 (00:33→05:31)
[2020-12-18] MEDS: NORCO 5/325 MG PO PRN ×2 (04:46→11:42)
[2020-12-18 05:25] LABS: Hematocrit 27.4 % (35-47); Hemoglobin 8.1 gm/dl (12.0-16.0); Mean Cell Volume 85.9 fl (78-100); Mean Corpuscular Hemoglobin 25.4 pg (26-32); Mean Corpuscular Hgb Concent. 29.6 g/dl (32-36); Mean Platelet Volume 9.3 fl (7.5-11.0); Platelet Count 450 K/mm3 (150-450); Red Blood Count 3.19 M/mm3 (4.1-5.4); Red Cell Distribution Width 17.2 % (11.5-14.0); White Blood Count 9.1 K/mm3 (4.0-10.5)
[2020-12-18] MEDS: Coreg 6.25 MG PO SCH (05:47)
[2020-12-18 06:05] LABS: ALBUMIN 2.9 g/dL (3.5-5.0); ALKALINE PHOSPHATASE 73 U/L (38-126); ANION GAP 12.3 MEQ/L (5-15); BLOOD UREA NITROGEN 12 mg/dL (7-17); CHLORIDE 102 mmol/L (98-107); Calcium 8.8 mg/dL (8.4-10.2); Carbon Dioxide 26 mmol/L (22-30); Creatinine 1 0.57 mg/dL (0.52-1.04); EST GLOMERULAR FILTRATION RATE > 60.0 ML/MIN; Glucose 120 mg/dL (74-106); Potassium 3.5 mmol/L (3.5-5.1); SGOT/AST 20 U/L (14-36); SGPT/ALT 11 U/L (0-35); SODIUM 137 mmol/L (137-145); Total Protein 5.6 g/dL (6.3-8.2)
[2020-12-18] MEDS ORDERED: Levofloxacin 250MG Tablet PO ONE (06:19)
[2020-12-18] MEDS: FLAGYL 500 MG IVPB 500 MG/100 ML BAG IV SCH (06:22)
[2020-12-18 07:28] VITALS: O2SAT 95
[2020-12-18 14:33] VITALS: BP 163/77; PULSE 74
--- NOTE | 2020-12-23 14:21 | ECHO ---
DATE OF PROCEDURE: 12/16/2020 CLINICAL INFORMATION: Hypoxemia status post appendectomy. The M-mode 2D, and Doppler echocardiogram including color flow Doppler shows the left ventricle is normal in size at 4.9 cm. There is no thrombus present. The septal wall thickness is increased at 1.3 cm. The left ventricular posterior wall thickness is 1.2 cm. There is normal contractility of the left ventricle. The ejection fraction is estimated to be between 55 and 60%. The right ventricle is grossly normal. The left atrium is normal at 3.7 cm. The interatrial septum is intact. The right atrium is normal. The aortic valve opens well. There is trace amount of aortic regurgitation. There is mitral valve leaflet thickening. The tricuspid valve is normal. The pulmonic valve is not well visualized. The aortic root is normal at 3.0 cm. There is no pericardial effusion present. IMPRESSION: 1) NORMAL CONTRACTILITY OF THE LEFT VENTRICLE. 2) BORDERLINE CONCENTRIC LEFT VENTRICULAR HYPERTROPHY. 3) TRACE AMOUNT OF AORTIC REGURGITATION.
== END 2020-12-18 13:45 | disposition home or self-care (01) | DRG 340 ==
LOC: ED 12:59 → MED SURG 17:45 → OBSVTOIN 21:26
PROVIDERS: ADMIT Family Medicine; ATTEND Family Medicine
PROC: 0DTJ4ZZ Resection of Appendix, Percutaneous Endoscopic Approach (ICD-10-PCS; principal; 2020-12-14)
DX: K35.33 Acute appendicitis with perforation, localized peritonitis, and gangrene, with abscess (principal); R09.02 Hypoxemia; I10 Essential (primary) hypertension; D64.9 Anemia, unspecified; R11.2 Nausea with vomiting, unspecified; E78.00 Pure hypercholesterolemia, unspecified; Z79.899 Other long term (current) drug therapy; Z20.822 Contact with and (suspected) exposure to COVID-19
CPT/HCPCS: 36000; 36415; 36430; 71045; 71046; 71260; 74018; 74022; 74176; 80053; 81001; 82150; 82274; 82947; 83036; 83605; 83690; 83880; 85014; 85018; 85025; 85027; 85379; 86850; 86900; 86901; 86922; 87070; 87075; 87086; 87205; 88304; 93306; 94002; 94640; 94760; 94762; 96360; 96365; 96374; 99140; 99285; 99291; J0330; J0690; J1100; J1885; J1940; J1956; J2250; J2270; J2405; J2704; J3010; J7609; P9016; U0003; A9270-GY